=== PATIENT | female | born 1945 | race Two or more races ===

== ENCOUNTER 2018-08-09 09:54 | Day surgery (SDC) | payer BC ==
[~2018-08-09 09:54] MED LIST: SOD CHLORIDE 0.9% 1,000 ML IV
[2018-08-09 10:49] LABS: WHITE BLOOD COUNT 5.1 10^3/ul (4.8-10.8)
[2018-08-09 10:49] LABS: ADD MAN DIFF? NO; BASOPHILS % 0.6 % (0.0-2.0); EOSINOPHILS # 0.2 10^3/ul (0.0-0.5); EOSINOPHILS % 3.1 % (0.0-7.0); HEMATOCRIT 41.2 % (37.0-47.0); LYMPHOCYTES # 1.4 10^3/ul (0.8-2.9); LYMPHOCYTES % 27.4 % (15.0-51.0); MEAN CORPUSCULAR HGB CONC 31.6 g/dl (32.0-37.0); MEAN CORPUSCULAR VOLUME 85.7 fl (82.0-101.0); MEAN PLATELET VOLUME 9.8 fl (7.4-10.4); MONOCYTE # 0.4 10^3/ul (0.3-0.9); MONOCYTES % 8.4 % (0.0-11.0); NEUTROPHIL # 3.1 10^3/ul (1.6-7.5); NEUTROPHILS % 60.3 % (39.0-77.0); PLATELET COUNT 285 10^3/UL (140-415); RED BLOOD COUNT 4.81 10^6/ul (4.20-5.40); RED CELL DISTRIBUTION WIDTH 12.9 % (11.5-14.5)
[2018-08-09 11:08] LABS: INR 0.92; PROTIME 12.5 Sec (11.9-14.9)
[2018-08-09 11:10] LABS: ANION GAP 12 (5-13); BLOOD UREA NITROGEN 16 mg/dl (7-20); CARBON DIOXIDE 29 mmol/L (21-31); CHLORIDE 103 mmol/L (97-110); CREATININE 0.94 mg/dl (0.44-1.00); GLUCOSE 111 mg/dl (70-220); POTASSIUM 3.9 mmol/L (3.5-5.1); SODIUM 144 mmol/L (135-144)
[2018-08-09] MEDS ORDERED: LIDOCAINE 1% (MDV) 20 ML INJ (14:06)
[2018-08-09] MEDS ORDERED: HEPARIN 1000 UNITS/ML 10 ML INJ (14:06)
[2018-08-09] MEDS ORDERED: IODIXANOL LOCM 100 ML BTL (14:06)
[2018-08-09] MEDS ORDERED: NITROGLYCERIN (IC) 100 MCG/ML INJ (14:07)
[2018-08-09] MEDS ORDERED: VERAPAMIL 5 MG INJ (14:07)
[2018-08-09] MEDS ORDERED: FENTAnyl 50 MCG/ML VIAL (14:34)
[2018-08-09] MEDS ORDERED: MIDAZOLAM 1 MG/ML 2 ML INJ (14:36)
[2018-08-09] MEDS: SOD CHLORIDE 0.9% 1,000 ML IV (14:47)
== END 2018-08-09 17:35 | disposition home or self-care (01) ==
LOC: SDS 09:54
DX: R07.9 Chest pain, unspecified (principal)
CPT/HCPCS: 80048; 85025; 85610; 93005; 93458